=== PATIENT | female | born 1980 | race Caucasian/White ===

== ENCOUNTER 2017-03-21 18:02 | Emergency (ER) | payer BC, OTHER ==
[2017-03-21 18:12] VITALS: BP 124/92; PULSE 90; TEMP 98.1; BMI 24.5
--- NOTE | 2017-03-21 19:10 | PDOC ---
History of Present Illness - General History Source: Patient Exam Limitations: No Limitations - History of Present Illness Initial Comments: 03/21/17 19:11 The patient is a 36 year old female, with no significant past medical history, who presents to the emergency department with pain to her left pinky toe status post hitting it on a high-chair this afternoon. The patient denies any numbness , tingling, and weakness to her left foot or toes. She denies any other bodily pain or injury. Allergies: None Social history: Never smoked <Luann Almeida - Last Filed: 03/21/17 19:11> <Edmar García - Last Filed: 03/21/17 19:20> - General Chief Complaint: Injury Stated Complaint: LEFT SMALL TOE INJURY Time Seen by Provider: 03/21/17 18:17 Past History <Luann Almeida - Last Filed: 03/21/17 19:11> - Past Medical History Other medical history: ANXIETY PRE ECCLAMPSIA - Psycho/Social/Smoking Cessation Hx Suicidal Ideation: No Smoking History: Never smoked Information on smoking cessation initiated: No Hx Alcohol Use: No Drug/Substance Use Hx: No Substance Use Type: None <Edmar García - Last Filed: 03/21/17 19:20> - Past Medical History Allergies/Adverse Reactions: Allergies Allergy/AdvReac Type Severity Reaction Status Date / Time No Known Allergies Allergy Unverified 03/21/17 18:03 Home Medications: Ambulatory Orders Sertraline HCl [Zoloft] 150 mg PO HS 03/21/17 Review of Systems - Review of Systems Able to Perform ROS?: Yes Comments:: 03/21/17 19:11 CONSTITUTIONAL: No reported: Fever, Chills, Diaphoresis, Generalized Weakness, Malaise, Loss of Appetite HEENT: No reported: Rhinorrhea, Nasal Congestion, Throat Pain, Throat Swelling, Difficulty Swallowing, Mouth Swelling, Ear Pain, Eye Pain, Visual Changes RESPIRATORY: No reported: Cough, Shortness of Breath, SOB with Exertion, Orthopnea, Wheezing , Stridor, Hemoptysis MUSCULOSKELETAL: +Left pinky toe pain No reported: Back pain, Neck Pain SKIN: No reported: Rash, Itching, Pallor <Luann Almeida - Last Filed: 03/21/17 19:11> *Physical Exam - Vital Signs Last Vital Signs Temp Pulse Resp BP Pulse Ox 98.1 F 90 16 124/92 100 03/21/17 18:03 03/21/17 18:03 03/21/17 18:03 03/21/17 18:03 03/21/17 18:03 - Physical Exam Comments: 03/21/17 19:12 GENERAL: The patient is awake, alert, and fully oriented, Nontoxic - in no acute distress. HEAD: Normocephalic, atraumatic. EYES: extraocular movements intact, sclera anicteric, conjunctiva clear. ENT: Normal voice, Moist mucous membranes. NECK: Normal range of motion, No JVD LUNGS: Breath sounds equal, clear to auscultation bilaterally. No wheezes, no rhonchi, no rales. HEART: Regular rate and rhythm, normal S1 and S2 without murmur, rub or gallop. ABDOMEN: Soft, nontender, normoactive bowel sounds. No guarding, no rebound. No masses. No CVA tenderness EXTREMITIES: +Diffuse tenderness to left fifth toe No tenderness at the 5th metatarsal, no other bony tenderness in the foot, ankle or knee No clubbing or cyanosis. No cords NEUROLOGICAL: No facial asymmetry, Normal speech, normal gait. PSYCH: Normal mood, normal affect. SKIN: Warm, Dry, normal turgor. <Luann Almeida - Last Filed: 03/21/17 19:11> - Vital Signs Last Vital Signs Temp Pulse Resp BP Pulse Ox 98.1 F 90 16 124/92 100 03/21/17 18:03 03/21/17 18:03 03/21/17 18:03 03/21/17 18:03 03/21/17 18:03 <Edmar García - Last Filed: 03/21/17 19:20> ED Treatment Course - RADIOLOGY Radiology Studies Ordered: Category Date Time Status FOOT-LEFT [RAD] Stat Radiology 03/21/17 18:17 Taken <Edmar García - Last Filed: 03/21/17 19:20> Medical Decision Making - Medical Decision Making 03/21/17 19:20 +nondisplcaed 5th pinky toe fx will ame tape and dc with pmd fu return precautions wer discussed I discussed the physical exam findings, ancillary test results and final diagnoses with the patient. I answered all of the patient's questions. The patient was satisfied with the care received and felt comfortable with the discharge plan and treatment plan. The patient will call their primary care physician within 24 hours to arrange follow-up and will return to the Emergency Department with any new, persistent or worsening symptoms. A portion of this note was documented by scribe services under my direction. I have reviewed the details of the note, within reason, and agree with the documentation with the following case summary and management plan written by me <Edmar García - Last Filed: 03/21/17 19:20> *DC/Admit/Observation/Transfer - Attestations Scribe Attestion: 03/21/17 19:12 Documentation prepared by LUIS Moreno, acting as medical office rep for Edmar García MD. <Luann Almeida - Last Filed: 03/21/17 19:11> - Discharge Dispostion Admit: No <Edmar García - Last Filed: 03/21/17 19:20> Diagnosis at time of Disposition: Toe fracture, left Qualifiers: Encounter type: initial encounter Toe: lesser toe Fracture type: closed Phalanx : proximal Fracture alignment: nondisplaced Qualified Code(s): S92.515A - Nondisplaced fracture of proximal phalanx of left lesser toe(s), initial encounter for closed fracture - Discharge Dispostion Disposition: HOME Condition at time of disposition: Stable - Referrals Referrals: Claribel Lopez MD [Non Staff, Medical] - - Patient Instructions Printed Discharge Instructions: DI for Toe Fracture Additional Instructions: Follow up with your primary care doctor Weight bearing as tolerated Return to the emergency department immediately with ANY new, persistent or worsening symptoms. You MUST call and follow up with your doctor tomorrow for further evaluation of your symptoms. Results were discussed with you. Please make sure your doctor reviews the results of your emergency evaluation. If you had any xrays during your visit, it was read preliminarily by myself, a Radiologist will review it and if there are any additional findings we will call you. Print Language: MALDIVIAN
== END 2017-03-21 19:28 | disposition home or self-care (01) ==
LOC: FER 18:02
DX: S92.515A Nondisplaced fracture of proximal phalanx of left lesser toe(s), initial encounter for closed fracture (principal); W22.8XXA Striking against or struck by other objects, initial encounter; Y93.89 Activity, other specified; Y92.89 Other specified places as the place of occurrence of the external cause
CPT/HCPCS: 73630-TC-LT; 99281-25